=== PATIENT | male | born 1945 | race Caucasian/White ===

== ENCOUNTER → 2017-01-15 | Outpatient (CLI) | payer BC, MEDICARE ==
[~2017-01-15] MED LIST: FLOMAX0.4 MG PO; NEURONTIN100 MG PO; PREDNISONE20 M1 PO; SIMVASTATIN10 MG PO; VALTREX1 GM PO; VERAPAMIL HCL180 M1 PO
[2017-01-15 14:34] LABS: BUN 14 mg/dl (7-24); CARBON DIOXIDE 29 mmol/L (21-32); CHLORIDE 103 mmol/L (98-107); EST GLOM FILT AFRICAN AMERICAN > 60 ml/min; GLUCOSE 87 mg/dL (65-99); POTASSIUM 3.8 mmol/L (3.5-5.1); SODIUM 142 mmol/L (136-145)
== END | disposition home or self-care (01) ==
LOC: LAB 13:23
PROVIDERS: Urology
DX: Z12.5 Encounter for screening for malignant neoplasm of prostate (principal); N40.0 Benign prostatic hyperplasia without lower urinary tract symptoms

== ENCOUNTER → 2017-04-17 | Outpatient (CLI) | payer BC, MEDICARE ==
[2017-04-17 12:15] LABS: BASO % 0.5 % (0.0-1.0); EOS # 0.2 10*3/uL (0.0-0.4); EOS % 2.7 % (1.0-4.0); HEMATOCRIT 40.3 % (42.0-52.0); HEMOGLOBIN 13.5 g/dl (14.0-18.0); LYMPH # 2.1 10*3/uL (1.3-4.4); LYMPH % 25.2 % (27.0-41.0); MEAN CELL VOLUME 90.6 fl (80.0-94.0); MEAN CORPUSCULAR HGB 30.3 pg (27.0-31.0); MEAN CORPUSCULAR HGB CONC 33.5 g/dl (33.0-37.0); MEAN PLATELET VOLUME 9.5 fl (9.6-12.3); MONO # 0.5 10*3/uL (0.1-1.0); MONO % 6.6 % (3.0-9.0); NEUT # 5.3 10*3/uL (2.3-7.9); NEUT % 64.6 % (47.0-73.0); PLATELET COUNT AUTOMATED 181 10*3/uL (130-400); RED BLOOD COUNT 4.45 10*6/uL (4.50-5.90); RED CELL DISTRI WIDTH 13.1 % (0-14.5); WHITE BLOOD COUNT 8.2 10*3/uL (4.8-10.8)
[2017-04-17 12:43] LABS: ALBUMIN 3.5 gm/dl (3.1-4.5); ALKALINE PHOSPHATASE 63 U/L (45-117); BILIRUBIN, TOTAL 0.5 mg/dl (0.2-1.0); BUN 12 mg/dl (7-24); C-REACTIVE PROTEIN < 0.29 MG/DL (0-0.3); CARBON DIOXIDE 27 mmol/L (21-32); CHLORIDE 105 mmol/L (98-107); EST GLOM FILT AFRICAN AMERICAN > 60 ml/min; GLUCOSE 89 mg/dL (65-99); POTASSIUM 4.2 mmol/L (3.5-5.1); SGOT/AST 17 IU/L (3-35); SGPT/ALT 22 U/L (12-78); SODIUM 142 mmol/L (136-145); TOTAL PROTEIN 6.9 gm/dL (6.4-8.2)
== END | disposition home or self-care (01) ==
LOC: LAB 11:30
PROVIDERS: Internal Medicine
DX: L95.9 Vasculitis limited to the skin, unspecified (principal)

== ENCOUNTER → 2017-07-15 | Outpatient (CLI) | payer BC, MEDICARE ==
[2017-07-16 08:10] LABS: PROSTATE SPECIFIC AG FREE 2.96 ng/mL; PROSTATE SPECIFIC AG, SERUM 7.3 ng/mL (0.0-4.0)
== END | disposition home or self-care (01) ==
LOC: LAB 12:22
PROVIDERS: Urology
DX: R97.20 Elevated prostate specific antigen [PSA] (principal)

== ENCOUNTER 2017-08-01 12:53 | Emergency (ER) | payer BC, MEDICARE ==
[~2017-08-01] VITALS: Wt 83.9 kg
[2017-08-01] MEDS ORDERED: MULTIVITAMINS1 EAC5 PO (13:09)
[2017-08-01 13:39] LABS: BASO % 0.3 % (0.0-1.0); EOS # 0.1 10*3/uL (0.0-0.4); EOS % 1.4 % (1.0-4.0); HEMATOCRIT 37.9 % (42.0-52.0); HEMOGLOBIN 12.7 g/dl (14.0-18.0); LYMPH # 1.5 10*3/uL (1.3-4.4); LYMPH % 15.6 % (27.0-41.0); MEAN CORPUSCULAR HGB 30.2 pg (27.0-31.0); MEAN CORPUSCULAR HGB CONC 33.5 g/dl (33.0-37.0); MEAN PLATELET VOLUME 9.1 fl (9.6-12.3); MONO # 0.7 10*3/uL (0.1-1.0); MONO % 7.2 % (3.0-9.0); NEUT # 7.2 10*3/uL (2.3-7.9); NEUT % 75.2 % (47.0-73.0); PLATELET COUNT AUTOMATED 192 10*3/uL (130-400); RED BLOOD COUNT 4.21 10*6/uL (4.50-5.90); WHITE BLOOD COUNT 9.5 10*3/uL (4.8-10.8)
[2017-08-01] MEDS ORDERED: VALTREX1000 MG PO (13:46)
[2017-08-01] MEDS ORDERED: AUGMENTIN 875875 MG PO (13:46)
[2017-08-01 13:55] LABS: BILIRUBIN NEGATIVE (NEGATIVE); BLOOD NEGATIVE (NEGATIVE); CLARITY CLEAR (CLEAR); COLOR YELLOW (YELLOW); GLUCOSE NEGATIVE (NEGATIVE); KETONE NEGATIVE (NEGATIVE); LEUKO ESTERASE NEGATIVE (NEGATIVE); NITRITE NEGATIVE (NEGATIVE); SPECIFIC GRAVITY 1.015 (1.005-1.030); UROBILINOGEN 0.2 E.U./dl (0.2-1.0)
[2017-08-01 14:01] LABS: ALBUMIN 2.7 gm/dl (3.1-4.5); ALKALINE PHOSPHATASE 60 U/L (45-117); BUN 16 mg/dl (7-24); CHLORIDE 100 mmol/L (98-107); CREATININE 0.85 mg/dL (0.70-1.30); POTASSIUM 4.2 mmol/L (3.5-5.1); SGOT/AST 21 IU/L (3-35); SGPT/ALT 42 U/L (12-78); SODIUM 136 mmol/L (136-145)
[2017-08-01 14:24] LABS: BACTERIA TRACE; WBC 0-2 wbc/hpf (0-5)
== END 2017-08-01 14:41 | disposition home or self-care (01) ==
LOC: ED 12:53
PROVIDERS: Student in an Organized Health Care Education/Training Program
DX: B02.9 Zoster without complications (principal); J32.9 Chronic sinusitis, unspecified; Z79.899 Other long term (current) drug therapy; Z88.8 Allergy status to other drugs, medicaments and biological substances

== ENCOUNTER → 2017-12-31 | Outpatient (CLI) | payer BC, MEDICARE ==
[~2017-12-31] MED LIST changes: +AUGMENTIN 875875 MG PO; +MULTIVITAMINS1 EAC5 PO; +VALTREX1000 MG PO
[2017-12-31 12:27] LABS: THYROID STIM HORMONE (HS) 1.98 uIU/ml (0.358-4.75)
== END | disposition home or self-care (01) ==
LOC: LAB 10:48
PROVIDERS: Internal Medicine
DX: E78.00 Pure hypercholesterolemia, unspecified (principal); I10 Essential (primary) hypertension; N40.0 Benign prostatic hyperplasia without lower urinary tract symptoms

== ENCOUNTER → 2018-08-01 | Outpatient (CLI) | payer BC, MEDICARE ==
[~2018-08-01] MED LIST changes: +ASPIRIN CHEWABL81 MG PO; +CALAN SR120 MG PO; +LIPITOR20 MG PO
== END | disposition home or self-care (01) ==
LOC: LAB 15:55
DX: R97.20 Elevated prostate specific antigen [PSA] (principal)

== ENCOUNTER → 2018-08-10 | Day surgery (SDC) | payer BC, MEDICARE ==
[~2018-08-10] VITALS: Ht 182.8 cm; Wt 86.2 kg
--- NOTE | ~2018-08-10 | O ---
[place], [place] OPERATIVE NOTE NAME: [id number] UN[facility] #: [id number] ROOM: DOCTOR: REJI ANTONIO MD BIRTHDATE: [birth year] DOS: 08/10/2018 PREOPERATIVE DIAGNOSIS: Cataract, left eye. POSTOPERATIVE DIAGNOSIS: Cataract, left eye. OPERATION: Extracapsular cataract extraction by phacoemulsification with posterior chamber intraocular lens implantation, left eye. ANESTHESIA: Monitored standby. OPERATIVE FINDINGS AND PROCEDURE: 2% Xylocaine topical anesthetic gel was applied to the eye in the preop area. The patient was taken to the operating room and prepped and draped in the standard fashion for sterile intraocular surgery. A time out procedure was performed verifying correct patient, correct site and corrects lens with Sirena Antonio M.D. The operating microscope was swung into position and the lid speculum was inserted. Using a Lucie paracentesis blade, a paracentesis was made through clear cornea. Viscoelastic was used to fill the anterior chamber. Using a metal keratome a 2.4 mm self-sealing clear corneal cataract incision was made temporally at the limbus. Using a pre-bent 25 gauge cystotome needle, a standard continuous curvilinear capsulorrhexis was performed. The anterior capsule was removed with forceps. The lens nucleus was hydrodissected and phacoemulsified in the posterior chamber. Cortical material was removed with the irrigation aspiration hand piece and the posterior capsule was then polished with a curet under irrigation. The posterior chamber and capsular bag were filled with viscoelastic. A posterior chamber intraocular lens manufactured by: [employer], Model #[id number] and 13.5 diopters in strength were then inserted into the posterior chamber and within the capsular bag using the lens cartridge and injector system. Viscoelastic was removed using the irrigation aspiration handpiece. The anterior chamber was filled with balanced salt solution through the paracentesis. Both the paracentesis site and cataract incisions were hydrated with BSS and verified to be water-tight and self-sealing. Cefuroxime 1 mg/0.1 mL was injected into the anterior chamber through the paracentesis site. The incision checked to be water-tight using a Weck-Cora sponge. The integrity of the cataract wound and ocular tension were checked. Lid speculum and drapes were removed. The patient was transferred from the operating room to the recovery room in satisfactory condition. [place], [place] OPERATIVE NOTE NAME: MARIA ESTHER MONTERO UNIT #: [id number] ROOM: DOCTOR: REJI ANTONIO MD BIRTHDATE: [birth year] REJI ANTONIO MD CM:OPRECORD:OPERATIVE NOTE [id number] REJI ANTONIO MD 08/10/18 1149 interface
[2018-08-10 09:00] VITALS: BP 156/63
[2018-08-10 10:32] VITALS: BP 142/72
[2018-08-10 10:47] VITALS: BP 129/71
[2018-08-10 11:02] VITALS: BP 142/72
== END | disposition home or self-care (01) ==
LOC: SDC 08-08 11:00
DX: H25.812 Combined forms of age-related cataract, left eye (principal); I10 Essential (primary) hypertension; E78.5 Hyperlipidemia, unspecified; Z79.899 Other long term (current) drug therapy; Z98.890 Other specified postprocedural states; Z98.41 Cataract extraction status, right eye; Z88.8 Allergy status to other drugs, medicaments and biological substances

== ENCOUNTER → 2018-09-02 | Outpatient (CLI) | payer BC, MEDICARE ==
[2018-09-02 09:02] LABS: HEMATOCRIT 43.1 % (42.0-52.0); HEMOGLOBIN 14.2 g/dl (14.0-18.0); MEAN CELL VOLUME 93.7 fl (80.0-94.0); MEAN CORPUSCULAR HGB 30.9 pg (27.0-31.0); MEAN CORPUSCULAR HGB CONC 32.9 g/dl (33.0-37.0); MEAN PLATELET VOLUME 9.5 fl (9.6-12.3); RED BLOOD COUNT 4.6 10*6/uL (4.50-5.90); RED CELL DISTRI WIDTH 13.4 % (0-14.5); WHITE BLOOD COUNT 6.8 10*3/uL (4.8-10.8)
[2018-09-02 09:28] LABS: ALBUMIN 3.6 gm/dl (3.1-4.5); ALKALINE PHOSPHATASE 77 U/L (45-117); BUN 13 mg/dl (7-24); CHLORIDE 105 mmol/L (98-107); CHOLESTEROL 122 mg/dL (<200); CREATININE 0.94 mg/dL (0.70-1.30); HDL CHOLESTEROL 68 mg/dl (40-60); LDL CHOLESTEROL 46 mg/dL (9-159); SGOT/AST 16 IU/L (3-35); SGPT/ALT 21 U/L (12-78); SODIUM 140 mmol/L (136-145); TOTAL PROTEIN 7.2 gm/dL (6.4-8.2); TRIGLYCERIDES 41 mg/dl (<150); VLDL CHOLESTEROL 8 mg/dL (6-40)
== END | disposition home or self-care (01) ==
LOC: LAB 08:42
PROVIDERS: Internal Medicine
DX: I10 Essential (primary) hypertension (principal); E78.00 Pure hypercholesterolemia, unspecified; E55.9 Vitamin D deficiency, unspecified; Z79.899 Other long term (current) drug therapy

== ENCOUNTER → 2018-09-30 | Outpatient (CLI) | payer BC, MEDICARE | END | disposition home or self-care (01) | LOC: RAD 11:01 | DX: R07.81 Pleurodynia (principal); W19.XXXA Unspecified fall, initial encounter; Y93.89 Activity, other specified; Y92.89 Other specified places as the place of occurrence of the external cause; Y99.8 Other external cause status ==

== ENCOUNTER → 2019-03-10 | Outpatient (CLI) | payer BC, MEDICARE ==
[2019-03-10 10:40] LABS: HEMATOCRIT 43.4 % (42.0-52.0); HEMOGLOBIN 14.4 g/dl (14.0-18.0); MEAN CELL VOLUME 93.1 fl (80.0-94.0); MEAN CORPUSCULAR HGB 30.9 pg (27.0-31.0); MEAN CORPUSCULAR HGB CONC 33.2 g/dl (33.0-37.0); MEAN PLATELET VOLUME 9.7 fl (9.6-12.3); RED BLOOD COUNT 4.66 10*6/uL (4.50-5.90); RED CELL DISTRI WIDTH 13.4 % (0-14.5); WHITE BLOOD COUNT 6.4 10*3/uL (4.8-10.8)
[2019-03-10 11:13] LABS: ALBUMIN 3.4 gm/dl (3.1-4.5); ALKALINE PHOSPHATASE 64 U/L (45-117); BUN 15 mg/dl (7-24); CHLORIDE 107 mmol/L (98-107); CHOLESTEROL 133 mg/dL (<200); CREATININE 0.94 mg/dL (0.70-1.30); HDL CHOLESTEROL 65 mg/dl (40-60); LDL CHOLESTEROL 57 mg/dL (9-159); SGOT/AST 12 IU/L (3-35); SGPT/ALT 18 U/L (12-78); SODIUM 140 mmol/L (136-145); TRIGLYCERIDES 57 mg/dl (<150); VLDL CHOLESTEROL 11 mg/dL (6-40)
== END | disposition home or self-care (01) ==
LOC: LAB 10:13
PROVIDERS: Physician Assistant
DX: Z12.5 Encounter for screening for malignant neoplasm of prostate (principal); E78.00 Pure hypercholesterolemia, unspecified; H61.23 Impacted cerumen, bilateral

== ENCOUNTER → 2019-07-31 | Outpatient (CLI) | payer BC, MEDICARE | END | disposition home or self-care (01) | LOC: LAB 13:07 | DX: R97.20 Elevated prostate specific antigen [PSA] (principal) ==

== ENCOUNTER → 2019-08-31 | Outpatient (CLI) | payer BC, MEDICARE ==
[2019-08-31 12:19] LABS: HEMATOCRIT 45.1 % (42.0-52.0); HEMOGLOBIN 14.5 g/dl (14.0-18.0); MEAN CELL VOLUME 94.5 fl (80.0-94.0); MEAN CORPUSCULAR HGB 30.4 pg (27.0-31.0); MEAN CORPUSCULAR HGB CONC 32.2 g/dl (33.0-37.0); MEAN PLATELET VOLUME 9.7 fl (9.6-12.3); RED BLOOD COUNT 4.77 10*6/uL (4.50-5.90); RED CELL DISTRI WIDTH 13.2 % (0-14.5); WHITE BLOOD COUNT 7.2 10*3/uL (4.8-10.8)
[2019-08-31 12:39] LABS: ALBUMIN 3.3 gm/dl (3.1-4.5); ALKALINE PHOSPHATASE 77 U/L (45-117); BUN 14 mg/dl (7-24); CHLORIDE 107 mmol/L (98-107); CHOLESTEROL 122 mg/dL (<200); CREATININE 0.96 mg/dL (0.70-1.30); HDL CHOLESTEROL 64 mg/dl (40-60); LDL CHOLESTEROL 48 mg/dL (9-159); POTASSIUM 4.2 mmol/L (3.5-5.1); SGOT/AST 13 IU/L (3-35); SGPT/ALT 24 U/L (12-78); SODIUM 141 mmol/L (136-145); TOTAL PROTEIN 7.4 gm/dL (6.4-8.2); TRIGLYCERIDES 51 mg/dl (<150); VLDL CHOLESTEROL 10 mg/dL (6-40)
== END | disposition home or self-care (01) ==
LOC: LAB 11:33
PROVIDERS: Physician Assistant
DX: Z23 Encounter for immunization (principal); R60.0 Localized edema; E78.00 Pure hypercholesterolemia, unspecified; R53.82 Chronic fatigue, unspecified

== ENCOUNTER 2019-11-23 05:30 | Emergency (ER) | payer BC, MEDICARE ==
[~2019-11-23] VITALS: Ht 182.8 cm; Wt 90.7 kg
[~2019-11-23 05:30] MED LIST changes: -CALAN SR120 MG PO; +VERAPAMIL HCL180 MG PO
[2019-11-23 06:10] LABS: BASO % 0.5 % (0.0-1.0); EOS # 0.3 10*3/uL (0.0-0.4); EOS % 3.5 % (1.0-4.0); HEMATOCRIT 43.5 % (42.0-52.0); HEMOGLOBIN 14.4 g/dl (14.0-18.0); LYMPH # 2.3 10*3/uL (1.3-4.4); LYMPH % 27.1 % (27.0-41.0); MEAN CELL VOLUME 94.6 fl (80.0-94.0); MEAN CORPUSCULAR HGB 31.3 pg (27.0-31.0); MEAN CORPUSCULAR HGB CONC 33.1 g/dl (33.0-37.0); MEAN PLATELET VOLUME 9.8 fl (9.6-12.3); MONO # 0.7 10*3/uL (0.1-1.0); MONO % 8.2 % (3.0-9.0); NEUT % 60.3 % (47.0-73.0); PLATELET COUNT AUTOMATED 192 10*3/uL (130-400); RED CELL DISTRI WIDTH 13.1 % (0-14.5); WHITE BLOOD COUNT 8.3 10*3/uL (4.8-10.8)
[2019-11-23 06:22] LABS: ALBUMIN 3.3 gm/dl (3.1-4.5); ALKALINE PHOSPHATASE 107 U/L (45-117); BUN 21 mg/dl (7-24); CHLORIDE 108 mmol/L (98-107); CREATININE 1.01 mg/dL (0.70-1.30); LIPASE 111 U/L (73-393); POTASSIUM 3.9 mmol/L (3.5-5.1); SGOT/AST 14 IU/L (3-35); SGPT/ALT 23 U/L (12-78); SODIUM 139 mmol/L (136-145); TOTAL PROTEIN 7.3 gm/dL (6.4-8.2)
[2019-11-23 07:55] LABS: BILIRUBIN NEGATIVE (NEGATIVE); CLARITY CLEAR (CLEAR); COLOR YELLOW (YELLOW); GLUCOSE NEGATIVE (NEGATIVE)
[2019-11-23 07:57] LABS: KETONE NEGATIVE (NEGATIVE)
[2019-11-23 07:58] LABS: BLOOD 3+ (NEGATIVE); PH 7.5 (5.0-9.0); UROBILINOGEN 0.2 E.U./dl (0.2-1.0)
[2019-11-23 07:59] LABS: LEUKO ESTERASE NEGATIVE (NEGATIVE); NITRITE NEGATIVE (NEGATIVE); WBC 0-2 wbc/hpf (0-5)
== END 2019-11-23 09:45 | disposition home or self-care (01) ==
LOC: ED 05:30
PROVIDERS: Emergency Medicine
DX: K80.50 Calculus of bile duct without cholangitis or cholecystitis without obstruction (principal); N28.1 Cyst of kidney, acquired; I10 Essential (primary) hypertension; Z88.8 Allergy status to other drugs, medicaments and biological substances; Z79.899 Other long term (current) drug therapy; Z79.82 Long term (current) use of aspirin

== ENCOUNTER → 2019-11-28 | Outpatient (CLI) | payer BC, MEDICARE ==
[~2019-11-28] MED LIST changes: +CO Q10100 MG PO
== END | disposition home or self-care (01) ==
LOC: US 08:26
DX: K82.8 Other specified diseases of gallbladder (principal)

== ENCOUNTER 2019-11-29 13:25 | Inpatient (IN) | payer BC, MEDICARE ==
[~2019-11-29] VITALS: Ht 180.3 cm; Wt 89.4 kg
[~2019-11-29 13:25] MED LIST changes: -CO Q10100 MG PO
[2019-11-29 13:32] VITALS: BP 154/76
[2019-11-29 14:21] LABS: BASO # 0.1 10*3/uL (0.0-0.1); BASO % 0.2 % (0.0-1.0); HEMATOCRIT 39.2 % (42.0-52.0); HEMOGLOBIN 13.6 g/dl (14.0-18.0); LYMPH # 0.6 10*3/uL (1.3-4.4); LYMPH % 2.8 % (27.0-41.0); MEAN CELL VOLUME 89.5 fl (80.0-94.0); MEAN CORPUSCULAR HGB 31.1 pg (27.0-31.0); MEAN CORPUSCULAR HGB CONC 34.7 g/dl (33.0-37.0); MEAN PLATELET VOLUME 10.2 fl (9.6-12.3); MONO # 1.3 10*3/uL (0.1-1.0); MONO % 6.5 % (3.0-9.0); NEUT % 89.9 % (47.0-73.0); PLATELET COUNT AUTOMATED 209 10*3/uL (130-400); RED BLOOD COUNT 4.38 10*6/uL (4.50-5.90)
[2019-11-29 14:34] LABS: ACT PARTIAL THROMBO TIME 34.7 SECONDS (20.0-32.1); INTERNATIONAL NORM RATIO 1.1 (2.0-3.5)
[2019-11-29 14:36] LABS: ALBUMIN 2.2 gm/dl (3.1-4.5); ALKALINE PHOSPHATASE 108 U/L (45-117); BUN 31 mg/dl (7-24); CHLORIDE 98 mmol/L (98-107); CREATININE 1.33 mg/dL (0.70-1.30); LIPASE 79 U/L (73-393); POTASSIUM 3.7 mmol/L (3.5-5.1); SGOT/AST 62 IU/L (3-35); SGPT/ALT 45 U/L (12-78); SODIUM 131 mmol/L (136-145); TOTAL PROTEIN 7.6 gm/dL (6.4-8.2)
[2019-11-29 15:00] VITALS: BP 136/78
[2019-11-29 16:00] VITALS: BP 148/80
--- NOTE | 2019-11-29 16:45 | NUR ---
A 74, admitted to , under the services of SUZAN Fontana DO with a diagnosis of CHOLECYSTITIS,SEVERE SEPSIS,PNEUMONITIS. Chief complaint is ABDOMINAL PAIN. Patient arrived via bed from ER. Monitor applied. Initial assessment completed. Vital signs taken and recorded. SUZAN FONTANA DO notified of admission to the unit. Orders received. See assessment for past medical history, medications and allergies. Patient and/or family oriented to unit. [address] visitation policy reviewed. Clothing/patient valuable form completed. ZIYAD JONES R
[2019-11-29 17:00] VITALS: BP 153/78
--- NOTE | 2019-11-29 17:30 | NUR ---
CALLED DR. NOVOA MADE AWARE CONSULT. SURGERY IN AM.
[2019-11-29] MEDS ORDERED: CO Q10100 MG PO (17:42)
--- NOTE | 2019-11-29 18:00 | NUR ---
CALLED DR. NOVOA REGARDING PT NOT MOVED BOWELS SINCE LAST . FLEETS ORDERED.
[2019-11-29 18:18] LABS: BILIRUBIN NEGATIVE (NEGATIVE); BLOOD NEGATIVE (NEGATIVE); CLARITY CLEAR (CLEAR); COLOR YELLOW (YELLOW); GLUCOSE NEGATIVE (NEGATIVE); KETONE TRACE (NEGATIVE)
[2019-11-29 18:19] LABS: LEUKO ESTERASE NEGATIVE (NEGATIVE); NITRITE NEGATIVE (NEGATIVE); UROBILINOGEN 0.2 E.U./dl (0.2-1.0)
[2019-11-29 18:28] LABS: BACTERIA 2+; RBC 0-2 rbc/hpf (0-2)
--- NOTE | 2019-11-29 18:50 | NUR ---
PT REFUSED TO DO FLEETS ENEMA AT THIS TIME. STATES HE HASN'T ATE MUCH AND DON'T WANT TO DO ENEMA.
[2019-11-29 20:00] VITALS: BP 119/62
[2019-11-30] VITALS: BP 129/63
--- NOTE | 2019-11-30 | NUR ---
PATIENT RESTING QUIETLY. IV FLUIDS INFUSING PER ORDER. ASSESED PAIN LEVEL. PATIENT DESCRIBED PAIN "THE USUAL" AND DENIED ANTY NEED FOR PAIN MED AT THIS TIME
--- NOTE | 2019-11-30 00:55 | NUR ---
24 HR chart check completed.
--- NOTE | 2019-11-30 02:10 | NUR ---
PATIENT MEDICATED SLOWLY WITH 2 MG IV MORPHINE PER PRN ORDER FOR C/O ABDOMINAL PAIN. RATED PAIN A 10/10 WITH MOVT. SEE EMAR. REINFORCED USE OF CALL LIGHT.
[2019-11-30 06:13] LABS: BASO % 0.2 % (0.0-1.0); EOS % 0.2 % (1.0-4.0); HEMATOCRIT 37.6 % (42.0-52.0); HEMOGLOBIN 12.7 g/dl (14.0-18.0); LYMPH # 1.1 10*3/uL (1.3-4.4); LYMPH % 5.4 % (27.0-41.0); MEAN CELL VOLUME 90.6 fl (80.0-94.0); MEAN CORPUSCULAR HGB 30.6 pg (27.0-31.0); MEAN CORPUSCULAR HGB CONC 33.8 g/dl (33.0-37.0); MEAN PLATELET VOLUME 10.1 fl (9.6-12.3); MONO # 1.3 10*3/uL (0.1-1.0); MONO % 6.9 % (3.0-9.0); NEUT # 16.7 10*3/uL (2.3-7.9); NEUT % 86.5 % (47.0-73.0); PLATELET COUNT AUTOMATED 193 10*3/uL (130-400); RED BLOOD COUNT 4.15 10*6/uL (4.50-5.90); RED CELL DISTRI WIDTH 13.2 % (0-14.5); WHITE BLOOD COUNT 19.3 10*3/uL (4.8-10.8)
[2019-11-30 06:36] LABS: ALBUMIN 1.9 gm/dl (3.1-4.5); CHLORIDE 103 mmol/L (98-107); CREATININE 1.01 mg/dL (0.70-1.30); POTASSIUM 3.5 mmol/L (3.5-5.1); SGOT/AST 55 IU/L (3-35); SGPT/ALT 45 U/L (12-78); SODIUM 136 mmol/L (136-145); TOTAL PROTEIN 6.7 gm/dL (6.4-8.2); TRIGLYCERIDES 78 mg/dl (<150); VLDL CHOLESTEROL 16 mg/dL (6-40)
--- NOTE | 2019-11-30 06:50 | NUR ---
PATIENT BEING TRANSPORTED TO OR.
[2019-11-30 07:06] VITALS: BP 150/99
[2019-11-30 07:35] LABS: BUN 21 mg/dl (7-24); CHOLESTEROL 50 mg/dL (<200); HDL CHOLESTEROL 12 mg/dl (40-60); LDL CHOLESTEROL 22 mg/dL (9-159)
[2019-11-30 07:36] LABS: FREE T4 0.96 ng/dl (0.76-1.46)
[2019-11-30 07:37] LABS: ALKALINE PHOSPHATASE 103 U/L (45-117)
--- NOTE | 2019-11-30 07:59 | NUR ---
PATIENT IN SURGERY.
--- NOTE | 2019-11-30 09:00 | NUR ---
case management unable to visit with patient due to patient out of room in surgery, will see later today
[2019-11-30 09:12] LABS: VITAMIN D, 25-HYDROXY 41.1 ng/mL (30-100)
[2019-11-30 09:34] LABS: HEMATOCRIT 30.8 % (42.0-52.0); HEMOGLOBIN 10.2 g/dl (14.0-18.0)
[2019-11-30 09:50] LABS: ALBUMIN 1.5 gm/dl (3.1-4.5); ALKALINE PHOSPHATASE 85 U/L (45-117); BUN 22 mg/dl (7-24); CHLORIDE 107 mmol/L (98-107); CREATININE 0.96 mg/dL (0.70-1.30); POTASSIUM 3.9 mmol/L (3.5-5.1); SGOT/AST 165 IU/L (3-35); SGPT/ALT 78 U/L (12-78); SODIUM 137 mmol/L (136-145); TOTAL PROTEIN 5.3 gm/dL (6.4-8.2)
--- NOTE | 2019-11-30 10:10 | NUR ---
ARRIVED FROM OR VIA BED. SEDATED. # 8 ENDOTUBE AT 24 LIP REMAINS IN. VENT SETTINGS ARE TV 550, CMV 12, FIO2 50%, AND PEEP 5. OGT INTACT AND PLACED TO LOW INTERMITTENT SUCTION. ABDOMEN SOFT AND NON-TENDER WITH J/P DRAIN DRAINING BLOODY DRAINAGE. TOLEDO DRAINING DARK EFREN URINE.
[2019-11-30 11:02] LABS: ARTERIAL BLOOD GAS PH 7.249 (7.35-7.45)
--- NOTE | 2019-11-30 11:10 | NUR ---
DR. VALDEZ NOTIFIED OF ABG RESULTS AND WANTS ABG'S IN 2 HRS AND TO CALL
--- NOTE | 2019-11-30 11:32 | NUR ---
case management unable to visit with patient due to vent, case management will follow
[2019-11-30 12:00] VITALS: BP 125/52
[2019-11-30 12:09] LABS: BUN 24 mg/dl (7-24); CHLORIDE 106 mmol/L (98-107); CREATININE 1.07 mg/dL (0.70-1.30); POTASSIUM 4.3 mmol/L (3.5-5.1); SODIUM 138 mmol/L (136-145)
[2019-11-30 12:10] LABS: HEMATOCRIT 32.6 % (42.0-52.0); HEMOGLOBIN 10.8 g/dl (14.0-18.0); MEAN CELL VOLUME 93.1 fl (80.0-94.0); MEAN CORPUSCULAR HGB 30.9 pg (27.0-31.0); MEAN CORPUSCULAR HGB CONC 33.1 g/dl (33.0-37.0); MEAN PLATELET VOLUME 10.1 fl (9.6-12.3); PLATELET COUNT AUTOMATED 168 10*3/uL (130-400); RED CELL DISTRI WIDTH 13.5 % (0-14.5); WHITE BLOOD COUNT 17.4 10*3/uL (4.8-10.8)
--- NOTE | 2019-11-30 12:22 | NUR ---
DR. SCHULTE CALLED AND NOTIFIED OF CONSULT. WILL DO ERCP TOMORROW AROUND 1PM. SURGERY TEAM NOTIFIED
[2019-11-30 12:31] LABS: BASOPHILS 1 % (0-1); TOTAL CELLS COUNTED 100 #CELLS
[2019-11-30 12:32] LABS: BURR CELLS FEW; PLATELET SUFFICIENCY NORMAL (NORMAL); TOXIC GRANULATION SLIGHT; VACUOLATION OF NEUTROPHILS SLIGHT
[2019-11-30 13:25] LABS: ABG BASE EXCESS -4.5 mmol/L (-2.0-2.0); ARTERIAL BLOOD GAS PH 7.365 (7.35-7.45)
--- NOTE | 2019-11-30 13:53 | NUR ---
FIO2 DECREASED TO 40%.
[2019-11-30 16:00] VITALS: BP 120/53
[2019-11-30 16:04] LABS: ABG BASE EXCESS -4.2 mmol/L (-2.0-2.0); ARTERIAL BLOOD GAS PH 7.388 (7.35-7.45)
--- NOTE | 2019-11-30 16:28 | NUR ---
DR. VALDEZ NOTIFIED OF PT'S BLOOD GAS. FIO2 TO BE LOWERED TO 30% AND ANOTHER ABG IN THE MORNING
--- NOTE | 2019-11-30 19:28 | NUR ---
24 HR chart check completed.
[2019-11-30 20:00] VITALS: BP 117/54; BP 118/52
--- NOTE | 2019-11-30 20:24 | NUR ---
ATERIAL LINE ZERO COMPLETE. PATENT.
--- NOTE | 2019-11-30 20:24 | NUR ---
PT RESTING QUIETLY ON BED WITH EASY RESPIRATIONS AT THIS TIME. VENTILATOR SETTINGS PER ORDERS. OG TUBE IN PLACE AT INTERMITTENT LOW SUCTION. MINIMAL DARK GREEN OUTPUT NOTED. MINIMAL CLEAR SECRETIONS SUCTIONED FROM ET TUBE VIA CLOSED SYSTEM. TOLEDO IN PLACE CLOUDY YELLOW URINE NOTED. BARBARA DRAIN IN PLACE WITH SEROUS DRAINAGE. DRESSINGS INTACT TO SURGICAL WOUNDS. AREA AT INCISION IS FIRM AND RED WITH SOME DISTENTION. Barbara DRAIN WITH 20 ML OUTPUT NOTED. CONTINUE TO MONITOR.
[2019-11-30 22:00] VITALS: BP 122/57
--- NOTE | 2019-11-30 22:44 | NUR ---
PT RESTING ON BED EASY RESPIRATIONS. NO DISTRESS NOTED. SMALL SKIN TEAR NOTED TO TOP OF LEFT HAND DURING BED BATH. PT HAD SMALL SCAB TO THE AREA UPON ADMISSION. ACUTE BLEEDING CONTROLLED. MD AWARE AND ORDERED RECEIVED. V INCIDNET AND PICTURES COMPLETED. RN TO CONTINUE TO MONITOR.
[2019-12-01] VITALS (11 sets, daily range): BP systolic 113–165; BP diastolic 52–68
--- NOTE | 2019-12-01 01:00 | NUR ---
PATIENT RESTING ON VENT, NO SIGNS OF DISTRESS.
[2019-12-01 05:44] LABS: ALBUMIN 1.5 gm/dl (3.1-4.5); ALKALINE PHOSPHATASE 104 U/L (45-117); BUN 32 mg/dl (7-24); CHLORIDE 108 mmol/L (98-107); CREATININE 1.13 mg/dL (0.70-1.30); PHOSPHOROUS 3.3 mg/dL (2.5-4.9); POTASSIUM 3.8 mmol/L (3.5-5.1); SGOT/AST 273 IU/L (3-35); SGPT/ALT 154 U/L (12-78); SODIUM 139 mmol/L (136-145); TOTAL PROTEIN 5.9 gm/dL (6.4-8.2)
[2019-12-01 06:00] LABS: BASO % 0.2 % (0.0-1.0); EOS % 0.1 % (1.0-4.0); HEMATOCRIT 29.7 % (42.0-52.0); LYMPH # 1.1 10*3/uL (1.3-4.4); LYMPH % 5.7 % (27.0-41.0); MEAN CELL VOLUME 91.1 fl (80.0-94.0); MEAN CORPUSCULAR HGB 30.7 pg (27.0-31.0); MEAN CORPUSCULAR HGB CONC 33.7 g/dl (33.0-37.0); MEAN PLATELET VOLUME 10.1 fl (9.6-12.3); MONO # 1.2 10*3/uL (0.1-1.0); MONO % 6.3 % (3.0-9.0); NEUT # 16.9 10*3/uL (2.3-7.9); NEUT % 86.5 % (47.0-73.0); PLATELET COUNT AUTOMATED 197 10*3/uL (130-400); RED BLOOD COUNT 3.26 10*6/uL (4.50-5.90); RED CELL DISTRI WIDTH 13.8 % (0-14.5); WHITE BLOOD COUNT 19.5 10*3/uL (4.8-10.8)
[2019-12-01 06:13] LABS: ARTERIAL BLOOD GAS PH 7.312 (7.35-7.45)
[2019-12-01 06:15] LABS: ABG BASE EXCESS -13.2 mmol/L (-2.0-2.0)
[2019-12-01 06:24] LABS: ACT PARTIAL THROMBO TIME 27.1 SECONDS (20.0-32.1)
--- NOTE | 2019-12-01 06:34 | NUR ---
EUGENESAHILMARIA ESTHER [id number] Please refer to the physician's history and physical for past medical history, comorbid conditions, and allergies. Diagnosis: CHOLECYSTITIS,SEVERE SEPSIS,PNEUMONITIS Jamin Score: 13,MODERATE RISK WOUND DESCRIPTIONS: Wound Number: 1 Location of the wound: left hand Type of wound: skinm tear Thickness: Partial Size: 0.6cm x 0.8cm x 0.1cm Tunneling: none Undermining: none Sinus Tract: none Presence of Exudate: Serosanguineous Amount: Light Color: Red Odor: None Periwound Skin Appearance: Normal Wound edges: approximated Pain (associated with wound): none at time of assessment How does patient state this happened? pt unable to state how this happened Surface the patient is resting on: Isoflex SKIN PREVENTION RECOMMENDATION: 1. Pressure redistribution support surface as appropriate 2. Elevate heels 3. Remove boots/TEDS every shift and reapply 4. Head of bed 30 degrees as tolerated 5. Assess nutrition and hydration 6. Manage moisture 7. Avoid the use of containment devices while in bed 8. Use absorptive products on surfaces limit layers of linens on bed 9. Turn and reposition every 1-2 hours in bed and every 1 hour in chair as tolerated 10. Weight shifts every 15 minutes while up in chair 11. Offloading with pillows or device to keep heels elevated off bed 12. Monitor skin at least every shift 13. Inspect under medical devices twice a day WOUND TREATMENT RECOMMENDATIONS: Clarify skin tear guidelines: Cleanse left hand with nss and apply sureprep around the wound hydrogel to wound bed and cover with optifoam gentle changed every 2 days and prn for soiling.
--- NOTE | 2019-12-01 06:34 | NUR ---
UPDATE GIVEN TO DR. NOVOA. NO NEW ORDERS AT THIS TIME.
--- NOTE | 2019-12-01 06:47 | NUR ---
NEW DRESSING APPLIED TO LT HAND.
--- NOTE | 2019-12-01 07:47 | NUR ---
Dr. Madrigal notified of wound care recommendations
--- NOTE | 2019-12-01 08:00 | NUR ---
RESTING IN BED, SEDATED ON DIPRIVAN GTT. TURNED AND REPOSITIONED ONTO RIGHT SIDE. DOES OPEN EYES WITH ANY CARE GIVEN. ABDOMEN SOFT WITH FAINT BOWEL SOUNDS HEARD. ABDOMINAL DRESSING TO RIGHT SIDE OF ABDOMEN IS INTACT WITH SMALL AMOUNT BLOOD UNDER DRESSING. J/P DRAIN INTACT AND DRAINING BLOODY DRAINAGE. 2 PUNCTURE SITES ARE COVERED WITH IWONA UNDERNEATH. TOLEDO DRAINING CLOUDY EFREN URINE. SCD'S AND DARLENE HOSE INTACT TO BILATERAL LOWER EXTREMITIES. ART LINE INTACT TO LEFT RADIAL WITH GOOD WAFEFORM NOTED.
[2019-12-01 09:59] LABS: ABG BASE EXCESS -0.2 mmol/L (-2.0-2.0); ARTERIAL BLOOD GAS PH 7.438 (7.35-7.45)
--- NOTE | 2019-12-01 10:40 | NUR ---
DR. VALDEZ NOTIFIED OF ABG RESULTS. NO FURTHER ORDERS RECEIVED
--- NOTE | 2019-12-01 15:20 | NUR ---
Received into iccu #1 via OR, Patient remains sedated, diprivan gtt off. Placed back on vent. Abdomen distended with very faint bowel sounds heard. OGT remains in place and clamped off. J/p drain emptied for 60cc bloody drainage. Mendoza draining dark tony urine. Bp 147/62
--- NOTE | 2019-12-01 16:00 | NUR ---
PLACED ON C-PAP 5; PRESSURE SUPPORT 10
--- NOTE | 2019-12-01 16:04 | NUR ---
PATIENT PLACED ON CPAP 5/PSV 10 WEAN FIO2 25%. PATIENT APPEARS TO BE TOLERATING WELL. SPONTANEOUS RESPIRATORY RATE 14, TIDAL VOLUME 960, SPO2 95%, BP 152/59.
--- NOTE | 2019-12-01 16:11 | NUR ---
FIO2 INCREASED TO 35% FOR AN SPO2 OF 90% DURING WEAN.
[2019-12-01 18:19] LABS: ABG BASE EXCESS 1.6 mmol/L (-2.0-2.0); ARTERIAL BLOOD GAS PH 7.477 (7.35-7.45)
--- NOTE | 2019-12-01 18:30 | NUR ---
Extubated. Placed on 3l nasal cannula. Pulse ox 97%.
--- NOTE | 2019-12-01 19:58 | NUR ---
UNDERPADS CHANGED FOR PT COMFORT. PT DENIES NEED FOR PAIN MEDICATION AT THIS TIME. VSS.
--- NOTE | 2019-12-01 22:32 | NUR ---
ART LINE DRESSING LOOSE. REDRESSED. PT CONTINUES TO DENY OFFER FOR PAIN MEDICATION AT THIS TIME.
[2019-12-02] VITALS: BP 132/58
[2019-12-02 04:00] VITALS: BP 136/81
--- NOTE | 2019-12-02 07:25 | NUR ---
24 HR chart check completed.
[2019-12-02 07:36] LABS: HEMATOCRIT 27.3 % (42.0-52.0); HEMOGLOBIN 9.1 g/dl (14.0-18.0); MEAN CELL VOLUME 91.6 fl (80.0-94.0); MEAN CORPUSCULAR HGB 30.5 pg (27.0-31.0); MEAN CORPUSCULAR HGB CONC 33.3 g/dl (33.0-37.0); MEAN PLATELET VOLUME 9.4 fl (9.6-12.3); RED BLOOD COUNT 2.98 10*6/uL (4.50-5.90); WHITE BLOOD COUNT 14.9 10*3/uL (4.8-10.8)
[2019-12-02 07:37] LABS: PLATELET COUNT AUTOMATED 265 10*3/uL (130-400)
[2019-12-02 07:43] LABS: ALBUMIN 1.5 gm/dl (3.1-4.5); ALKALINE PHOSPHATASE 102 U/L (45-117); BUN 28 mg/dl (7-24); CHLORIDE 110 mmol/L (98-107); CREATININE 0.75 mg/dL (0.70-1.30); POTASSIUM 3.5 mmol/L (3.5-5.1); SGOT/AST 123 IU/L (3-35); SGPT/ALT 120 U/L (12-78); SODIUM 145 mmol/L (136-145); TOTAL PROTEIN 5.8 gm/dL (6.4-8.2)
[2019-12-02 08:00] VITALS: BP 124/72
[2019-12-02 08:02] LABS: TOTAL CELLS COUNTED 100 #CELLS; TOXIC GRANULATION SLIGHT
[2019-12-02 08:03] LABS: PLATELET SUFFICIENCY NORMAL (NORMAL)
[2019-12-02 08:04] LABS: PLASMA CELL 1 % (0-0)
--- NOTE | 2019-12-02 08:19 | NUR ---
PT RESTING COMFORTABLY ON BED WITH EASY RESPIRATIONS. OXYGEN AT 3L NC. OLI DRAIN NOTED WITH 10ML DARK RED DRAINAGE. TOLEDO CATHETER PATENT WITH CLOUDY YELLOW URINE. PT DENIES PAIN AT THIS TIME. LEFT RADIAL ARTERIAL LINE PATENT WITH GOOD WAVE FORMS. MRSA SWAB COLLECTED AND SENT. ABDOMEN DISTENDED BUT SOFT. HYPOACTIVE BOWEL SOUNDS. RN TO CONTINUE TO [facility]. DR OSPINA IN ROOM FOR EVALUATOIN.
--- NOTE | 2019-12-02 08:45 | NUR ---
ART LINE DISCONTINUED PER MD ORDERS. DRESSING APPLIED. NO COMPLICATIONS NOTED.
--- NOTE | 2019-12-02 09:10 | NUR ---
TYLENOL 650 MG GIVEN ORALLY FOR MILD PAIN. RN TO ASSIST TRANFER TO BEDSIDE CHAIR.
--- NOTE | 2019-12-02 09:30 | NUR ---
RN SPOKE WTIH DR SCHULTE. REPORTED LAB WORK AND RECEIVED UPDATED DIET ORDER PAIN MEDICATION EFFECTIVE
--- NOTE | 2019-12-02 10:00 | NUR ---
PT UP TO BEDSIDE CHAIR WITH RN ASSIST. PT WEAK ON FEET BUT ABLE TO BEAR FULL WEIGHT AND TRANSFER WTIH ASSISTANCE.
[2019-12-02 12:00] VITALS: BP 134/68
--- NOTE | 2019-12-02 12:05 | NUR ---
PT SITTING IN BEDSIDE CHAIR WITH EASY RESPIRATIONS ON ROOM AIR. NO DISTRESS. DENIES ANY PAIN AT THIS TIME. CONTINUE TO MONITOR.
--- NOTE | 2019-12-02 14:19 | NUR ---
PT RESTING COMFORTABLY IN BEDSIDE CHAIR. FAMILY AT BEDSIDE. INCENTIVE SPIROMETER AT BEDSIDE WTIH PT PERFORMING PROPERLY WITH RN PRESENT. RN TO CONTINUE TO MONITOR.
--- NOTE | 2019-12-02 14:39 | NUR ---
PT REQUESTING TO GO BACK TO BED. PT ASSISTED TO BED WITH ABILITY TO BEAR WEIGHT. WEAKNESS NOTED. PT DENIES ANY INCREASE IN PAIN UPON TRANSFER. VITALS STABLE. RN TO CONTINUE TO MONITOR.
--- NOTE | 2019-12-02 15:11 | NUR ---
PT REPORT GIVEN TO OLVIN BAILEY. PT STABLE AND RESTING COMFORTABLY.
--- NOTE | 2019-12-02 15:27 | NUR ---
DR MAE VISITED EARLIER. HE REMOVED DRESSING TO INCISION, LEFT OPEN TO AIR. NEW SPLIT 2X2 AND TEGADERM WAS APPLIED TO OLI INSERTION SITE.
--- NOTE | 2019-12-02 15:51 | NUR ---
PT INSTRUCTED ON USE OF IS. PT DEMONSTRATED PROPER TECHNIQUE. PT ACHIEVE [phone] CC X 10. PT INSTRUCTED TO USE Q 1 HR W/A.
--- NOTE | 2019-12-02 15:59 | NUR ---
ON ASSESSMENT PATIENT RESTING EASILY WITH HEAD OF BED ELEVATED. NASAL O2 ON AT 1L/MIN ON ROOM AIR HE WAS HAVING PERIODS OF DESATURATION. ENCOURAGED INCENTIVE SPIROMETRY. ABDOMEN IS DISTENDED WITH A FEW HYPOACTIVE TINKLES OF PERISTALSIS. PT REPORTS PASSING GAS. TWO TROCAR SITES HAVE STERISTRIPS WITH NO DRAINAGE. THE RUQ INCISION WELL APPROXIMATED WITH 13 IWONA INTACT. DRESSING INTACT TO OLI DRAIN INSERTION SITE. THE OLI BULB SUCTION IS ACTIVATED. SMALL AMOUNT OF DRK RED DRAINAGE SEEN IN BULB. HE HAS NOT VOIDED SINCE TOLEDO REMOVED. SEE ALL APPROPRIATE INTERVENTIONS.
[2019-12-02 16:00] VITALS: BP 139/58
--- NOTE | 2019-12-02 16:36 | NUR ---
DR NOVOA CALLED IN TO CHECK ON PATIENT AND UPDATED.
--- NOTE | 2019-12-02 17:50 | NUR ---
TRANSFERRED VIA BED IN STABLE CONDITION.
--- NOTE | 2019-12-02 19:29 | NUR ---
REPORT TO MK.
[2019-12-02 20:00] VITALS: BP 147/56
--- NOTE | 2019-12-02 20:42 | NUR ---
PT HAS VOIDED 50 CC AT THIS TIME INTO URINAL FOR THE FIRST TIME POST TOLEDO CATHETER REMOVAL. PT DENIES PAIN TO ABDOMEN. OLI DRAIN IS IN TACT, DRAINING DARK RED FLUID. IWONA TO ABDOMEN ARE IN TACT AND MILKA PER ORDERS. STERI STRIPS TO INCISIONS ARE C/D/I. HYPOACTIVE BOWEL SOUNDSX4 QUADS. PT STATES HE IS PASSING GAS. NO COMPLAINTS ARE VOICED. SCDS AND TEDS IN PLACE TO BILATERAL LOWER EXTREMITIES. RESPIRATIONS EASY AND UNLABORED. NO SOB NOTED. WILL CONTINUE TO MONITOR. CALL LIGHT IN REACH.
[2019-12-03] VITALS: BP 154/56
--- NOTE | 2019-12-03 | NUR ---
PT SLEEPING IN BED. RESPIRATIONS UNLABORED ON 1L NC. NO S/S OF DISTRESS. SCDS/TEDS IN PLACE. WILL CONTINUE TO MONITOR. CALL LIGHT IN REACH.
--- NOTE | 2019-12-03 02:38 | NUR ---
Shift chart check completed.
--- NOTE | 2019-12-03 06:00 | NUR ---
OLI DRAIN EMPTIED, ABOUT 18 CC OF DARK RED DRAINAGE EMPTIED AT THIS TIME. PT DENIES PAIN/SOB/DISCOMFORT. RESPIRATIONS UNLABORED. ALL NEEDS MET. CALL LIGHT IN REACH.
[2019-12-03 06:28] LABS: HEMATOCRIT 28.5 % (42.0-52.0); HEMOGLOBIN 9.3 g/dl (14.0-18.0); MEAN CELL VOLUME 92.5 fl (80.0-94.0); MEAN CORPUSCULAR HGB 30.2 pg (27.0-31.0); MEAN CORPUSCULAR HGB CONC 32.6 g/dl (33.0-37.0); MEAN PLATELET VOLUME 9.3 fl (9.6-12.3); NUCLEATED RED BLOOD CELL 0.2 % (0.0-0.0); PLATELET COUNT AUTOMATED 327 10*3/uL (130-400); RED BLOOD COUNT 3.08 10*6/uL (4.50-5.90); RED CELL DISTRI WIDTH 14.3 % (0-14.5); WHITE BLOOD COUNT 12.8 10*3/uL (4.8-10.8)
[2019-12-03 06:32] LABS: BUN 22 mg/dl (7-24); CHLORIDE 110 mmol/L (98-107); CREATININE 0.74 mg/dL (0.70-1.30); POTASSIUM 3.4 mmol/L (3.5-5.1); SODIUM 141 mmol/L (136-145)
[2019-12-03 07:10] LABS: OVALOCYTES FEW; PLASMA CELL 1 % (0-0); PLATELET SUFFICIENCY NORMAL (NORMAL); POLYCHROMASIA SLIGHT; TOTAL CELLS COUNTED 100 #CELLS; TOXIC GRANULATION SLIGHT
[2019-12-03 08:00] VITALS: BP 130/84
--- NOTE | 2019-12-03 10:54 | NUR ---
WOUND CARE COMPLETED TOLERATED WELL
--- NOTE | 2019-12-03 11:00 | NUR ---
PHYSICAL THERAPY PT EVAL COMPLETED TODAY ON LEVEL 4: FULL EVAL TO FOLLOW. RECOMMEND PT WHILE HERE TO ADDRESS DECREASED STRENGTH AND FUNCTIONAL MOBILITY. PT EVAL IS MODERATE COMPLEXITY: [id number]. D/C REC: WOULD ADVISE SNF DUE TO LIVING ALONE AND RECENT SURGERY HOWEVER IF HE CONTINUES TO DO WELL HERE MAY BE ABLE TO RETURN TO HOME WITH HOME HEALTH SERVICES. THANK YOU FOR REFERRAL ARIELA MARQUEZ PT
[2019-12-03 12:00] VITALS: BP 143/59
--- NOTE | 2019-12-03 12:59 | NUR ---
DENIES DISCOMFORT. NO NEEDS STATED
--- NOTE | 2019-12-03 14:46 | NUR ---
PER CAROL OLIVO TO START REGULAR DIET. SEE ORDERS.
[2019-12-03 16:00] VITALS: BP 132/54
--- NOTE | 2019-12-03 18:05 | NUR ---
arrived to floor. no acute distress noted. respirations easy. oriented to room, staff, call system. call light within reach. no voiced complaints
[2019-12-03 20:00] VITALS: BP 150/63
--- NOTE | 2019-12-03 20:49 | NUR ---
PATIENT IS AAOX3. ASSESSMENT IS COMPLETE WITH NO S/S OF DISTRESS NOTED AT THIS TIME. BED IS LOW, LOCKED, ALARMED, AND CALL LIGHT IS WITHIN REACH. WILL CONTINUE TO MONITOR SEE SHIFT ASSESSMENT.
[2019-12-04] VITALS: BP 158/77
--- NOTE | 2019-12-04 00:30 | NUR ---
PATIENT SLEEPING WITH NONLABORED RESPERS ON ROOM AIR. CALL LIGHT IS WIHTIN REACH.
--- NOTE | 2019-12-04 02:39 | NUR ---
CHART CHECK COMPETE.
--- NOTE | 2019-12-04 06:49 | NUR ---
PHYSICAL THERAPY PT EVAL COMPLETED TODAY: FULL EVAL TO FOLLOW; RECOMMEND PT WHILE HERE TO ADDRESS DECREASED STRENGTH AND FUNCTIONAL MOBILITY. PT EVAL IS MODERATE COMPLEXITY: [id number]. D/C RECOMMENDATIONS AT THIS TIME ARE SNF BASED ON THE FACT THAT HE DOES LIVE ALONE AND HAS HAD RECENT SURGERY. IF HE DOES WELL HERE WITH PT HE MAY BE ABLE TO GO HOEM WITH HOME HEALTH. THANK YOU FOR REFERRAL ARIELA MARQUEZ PT
[2019-12-04 08:00] VITALS: BP 150/66
--- NOTE | 2019-12-04 09:00 | NUR ---
Natural Resources Technician in to talk to patient. Patient states lives at home with alone. There are none steps in the home. 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 ZEYNEP AVILA
--- NOTE | 2019-12-04 09:00 | NUR ---
Concrete Curer in to talk to patient. Patient states lives at home with alone. There are no steps in the home. Physician: zach alex [facility]: [facility] Home health services: none Patient's level of ADLs: INDEPENDENT Patient has working utilities: all working DME: none Follow-up physician's appointment after d/c: will be made by hospitalist nurse director upon discharge Does patient want to access PORTAL?: no Discharge plan discussed with patient, he lives at home alone, he is independent in adls and ambulation, works, drives, he states he will return home when medically stable, discussed with him VNA and educated on their services, he was receptive to this, given choice of companies he chose [facility], case management will send referral to [facility] . ZEYNEP AVILA
[2019-12-04 09:19] LABS: ALKALINE PHOSPHATASE 90 U/L (45-117); LIPASE 196 U/L (73-393); SGOT/AST 44 IU/L (3-35); SGPT/ALT 80 U/L (12-78)
--- NOTE | 2019-12-04 11:07 | NUR ---
PHYSICAL THERAPY TREATMENT TIME: 16 MINUTES TOTAL. Patient presented to therapy in supine with head of bed slightly elevated and bed alarm activated. Patient gives informed consent for treatment. Patient was identified by name and on wristband. Patient reports abdominal pain from recent surgery. Patient has OLI drain. Patient performed supine to sitting at EOB transfer with MIN A X 1. Patient scooted to EOB with CGA X 1. Patient transferred sit to stand from EOB with MIN A X 1 WITH VERBAL CUES for pushing off the bed with hands. Patient ambulated with Walker and CGA X 1 for 60' x 2 with other therapist pushing the rolling chair behind patient while he ambulated. PATIENT REQUIRED ONLY ONE STANDING REST BREAK AFTER THE 1ST 60' DISTANCE. Patient verbal cues during gait for upright posture. Patient transferred into bedside chair with CGA X 1 with verbal cues for putting hands back on armrests of chair. Patient was left in bedside chair with call light within reach, chair alarm tested and attached to patient and LEs in low position. Patient was 1:1 with this NIPPLE MAKER for 16 minutes total. NII SMITH NIPPLE MAKER
[2019-12-04 11:37] VITALS: BP 117/54
--- NOTE | 2019-12-04 14:19 | NUR ---
case management notified [facility] that patient is being discharged to home today
--- NOTE | 2019-12-04 15:15 | NUR ---
Discharge instructions reviewed with patient. Patient receptive and verbalizes understanding. Follow-up care arranged. Written instructions given to patient. PATIENT AWAITING RIDE HOME FROM FAMILY, GETTING DRESSED AT THIS TIME. AMADA FERNANDEZ
--- NOTE | 2019-12-04 15:30 | NUR ---
PATIENT DISCHARGED TO HOME. ALL PERSONAL BELONGINGS SENT WITH PATIENT. IVS DISCONTINUED. DISCHARGE INSTRUCTIONS GIVEN AND REVIEWED WITH PATIENT. PATIENT INSTRUCTED TO FOLLOW UP WITH DR. BRISCOE, AND .
--- NOTE | 2019-12-05 07:31 | NUR ---
PHYSICAL THERAPY CO-SIGN I approve of the Physical Therapy notes written above. Tracey Woodward PT
== END 2019-12-04 15:30 | disposition home or self-care (01) | DRG 853 ==
LOC: ED 13:25 → 4E 16:01 → EDHOLD 16:01 → ICCU 16:01 → 4E 16:36 → ICCU 11-30 09:30 → 4E 12-02 17:42 → 5E 12-03 18:15
PROVIDERS: Emergency Medicine; Internal Medicine; Internal Medicine Critical Care Medicine; Internal Medicine Gastroenterology; Nurse Anesthetist, Certified Registered; Registered Nurse; Surgery; ADMIT Family Medicine
PROC: 0FT40ZZ Resection of Gallbladder, Open Approach (ICD-10-PCS; principal; 2019-11-30)
PROC: 0FJ44ZZ Inspection of Gallbladder, Percutaneous Endoscopic Approach (ICD-10-PCS; principal; 2019-11-30)
PROC: 0F798DZ Dilation of Common Bile Duct with Intraluminal Device, Via Natural or Artificial Opening Endoscopic (ICD-10-PCS; 2019-12-01)
PROC: BF101ZZ Fluoroscopy of Bile Ducts using Low Osmolar Contrast (ICD-10-PCS; 2019-12-01)
DX: A41.9 Sepsis, unspecified organism (principal); N17.0 Acute kidney failure with tubular necrosis; J18.9 Pneumonia, unspecified organism; J95.2 Acute pulmonary insufficiency following nonthoracic surgery; E44.0 Moderate protein-calorie malnutrition; K81.0 Acute cholecystitis; R65.20 Severe sepsis without septic shock; I10 Essential (primary) hypertension; N40.0 Benign prostatic hyperplasia without lower urinary tract symptoms; E78.2 Mixed hyperlipidemia; K83.8 Other specified diseases of biliary tract; E78.00 Pure hypercholesterolemia, unspecified; E66.9 Obesity, unspecified; Z88.8 Allergy status to other drugs, medicaments and biological substances; Z98.49 Cataract extraction status, unspecified eye; Z68.27 Body mass index [BMI] 27.0-27.9, adult; Z82.49 Family history of ischemic heart disease and other diseases of the circulatory system; Z79.82 Long term (current) use of aspirin; Z79.899 Other long term (current) drug therapy

== ENCOUNTER → 2020-09-25 | Outpatient (CLI) | payer BC, MEDICARE ==
[~2020-09-25] MED LIST changes: +CO Q10100 MG PO
== END | disposition home or self-care (01) ==
LOC: LAB 14:03
PROVIDERS: ATTEND Urology
DX: Z12.5 Encounter for screening for malignant neoplasm of prostate (principal)

== ENCOUNTER 2021-06-28 18:55 | Emergency (ER) | payer BC, MEDICARE ==
[~2021-06-28] VITALS: Ht 182.9 cm; Wt 90.7 kg
[2021-06-28] MEDS ORDERED: COLACE100 MG PO (19:42)
== END 2021-06-28 20:02 | disposition home or self-care (01) ==
LOC: ED 18:55
DX: K59.00 Constipation, unspecified (principal); Z88.8 Allergy status to other drugs, medicaments and biological substances; Z79.899 Other long term (current) drug therapy; Z79.82 Long term (current) use of aspirin

== ENCOUNTER → 2021-12-16 | Outpatient (CLI) | payer BC, MEDICARE ==
[~2021-12-16] MED LIST changes: +COLACE100 MG PO
== END | disposition home or self-care (01) ==
LOC: LAB 13:45
PROVIDERS: ATTEND Urology
DX: N40.1 Benign prostatic hyperplasia with lower urinary tract symptoms (principal)

== ENCOUNTER 2022-02-22 14:41 | Emergency (ER) | payer BC, MEDICARE ==
[2022-02-22] MEDS ORDERED: LOPRESSOR25 MG PO (14:55)
== END 2022-02-22 15:04 | disposition home or self-care (01) ==
LOC: ED 14:41
DX: I10 Essential (primary) hypertension (principal); Z76.0 Encounter for issue of repeat prescription

== ENCOUNTER → 2022-06-17 | Outpatient (CLI) | payer BC, MEDICARE ==
[~2022-06-17] MED LIST changes: +LOPRESSOR25 MG PO
== END | disposition home or self-care (01) ==
LOC: LAB 14:45
PROVIDERS: ATTEND Urology
DX: N40.1 Benign prostatic hyperplasia with lower urinary tract symptoms (principal)

== ENCOUNTER → 2022-09-08 | Outpatient (CLI) | payer BC, MEDICARE | END | disposition home or self-care (01) | LOC: CT 10:00 | PROVIDERS: ATTEND Urology | DX: K44.9 Diaphragmatic hernia without obstruction or gangrene (principal); K57.32 Diverticulitis of large intestine without perforation or abscess without bleeding; N40.0 Benign prostatic hyperplasia without lower urinary tract symptoms ==

== ENCOUNTER 2022-11-15 15:50 | Emergency (ER) | payer BC, MEDICARE ==
[~2022-11-15] VITALS: Ht 180.3 cm; Wt 88.5 kg
[2022-11-15 16:29] LABS: BASO % 0.2 % (0.0-1.0); EOS # 0.1 10*3/uL (0.0-0.4); EOS % 2.5 % (1.0-4.0); LYMPH # 0.9 10*3/uL (1.3-4.4); MEAN CELL VOLUME 94.3 fl (80.0-94.0); MEAN CORPUSCULAR HGB 31.6 pg (27.0-31.0); MEAN CORPUSCULAR HGB CONC 33.5 g/dl (33.0-37.0); MEAN PLATELET VOLUME 9.6 fl (9.6-12.3); MONO # 0.3 10*3/uL (0.1-1.0); MONO % 6.4 % (3.0-9.0); NEUT # 3.3 10*3/uL (2.3-7.9); NEUT % 70.7 % (47.0-73.0); PLATELET COUNT AUTOMATED 161 10*3/uL (130-400); RED BLOOD COUNT 4.56 10*6/uL (4.50-5.90); RED CELL DISTRI WIDTH 13.5 % (0-14.5); WHITE BLOOD COUNT 4.7 10*3/uL (4.8-10.8)
[2022-11-15 16:39] LABS: BILIRUBIN Negative (Negative); BLOOD Negative (Negative); CLARITY Clear (Clear); COLOR Yellow (Yellow); GLUCOSE Negative (Negative); KETONE Trace (Negative); LEUKO ESTERASE Negative (Negative); NITRITE Negative (Negative); PH 6.5 (4.5-8.0); SPECIFIC GRAVITY 1.015 (1.001-1.030)
[2022-11-15 16:49] LABS: ALKALINE PHOSPHATASE 62 U/L (46-116); BUN 15 mg/dl (9-23); CHLORIDE 101 mmol/L (98-107); POTASSIUM 3.8 mmol/L (3.4-5.1); SGPT/ALT 25 U/L (10-49); TOTAL PROTEIN 6.9 gm/dL (6.0-8.0)
[2022-11-15 17:25] LABS: BACTERIA TRACE; RBC 0-2 rbc/hpf (0-2)
== END 2022-11-15 18:01 | disposition home or self-care (01) ==
LOC: ED 15:50
PROVIDERS: Nurse Practitioner Family
DX: R19.7 Diarrhea, unspecified (principal); I10 Essential (primary) hypertension; Z88.8 Allergy status to other drugs, medicaments and biological substances; Z90.49 Acquired absence of other specified parts of digestive tract; Z98.890 Other specified postprocedural states

== ENCOUNTER → 2022-11-24 | Outpatient (CLI) | payer BC, MEDICARE | END | disposition home or self-care (01) | LOC: LAB 11-17 14:19 | PROVIDERS: ATTEND Internal Medicine | DX: R19.7 Diarrhea, unspecified (principal) ==

== ENCOUNTER → 2023-01-13 | Outpatient (CLI) | payer BC, MEDICARE | END | disposition home or self-care (01) | LOC: LAB 13:00 | PROVIDERS: ATTEND Urology | DX: N40.1 Benign prostatic hyperplasia with lower urinary tract symptoms (principal) ==

== ENCOUNTER → 2023-06-09 | Outpatient (CLI) | payer BC, MEDICARE | END | disposition home or self-care (01) | LOC: RAD 14:45 | PROVIDERS: ATTEND Physician Assistant | DX: J43.9 Emphysema, unspecified (principal); M40.294 Other kyphosis, thoracic region; M51.34 Other intervertebral disc degeneration, thoracic region ==

== ENCOUNTER → 2023-06-23 | Outpatient (CLI) | payer BC, MEDICARE | END | disposition home or self-care (01) | LOC: US 06-17 13:00 | PROVIDERS: ATTEND Physician Assistant | DX: R59.1 Generalized enlarged lymph nodes (principal) ==

== ENCOUNTER → 2023-07-09 | Outpatient (CLI) | payer BC, MEDICARE | END | disposition home or self-care (01) | LOC: LAB 14:36 | PROVIDERS: ATTEND Urology | DX: C61 Malignant neoplasm of prostate (principal) ==

== ENCOUNTER 2023-09-17 09:41 | Emergency (ER) | payer BC, MEDICARE ==
[~2023-09-17] VITALS: Ht 180.3 cm; Wt 88.5 kg
[2023-09-17] MEDS ORDERED: CIPROFLOXACIN H10 ML OPH (10:07)
== END 2023-09-17 10:20 | disposition home or self-care (01) ==
LOC: ED 09:41
DX: H10.9 Unspecified conjunctivitis (principal); I10 Essential (primary) hypertension; Z88.8 Allergy status to other drugs, medicaments and biological substances; Z90.49 Acquired absence of other specified parts of digestive tract; Z98.890 Other specified postprocedural states

== ENCOUNTER → 2023-10-15 | Outpatient (CLI) | payer BC, MEDICARE ==
[~2023-10-15] MED LIST changes: +CIPROFLOXACIN H10 ML OPH
== END | disposition home or self-care (01) ==
LOC: LAB 14:32
PROVIDERS: ATTEND Urology
DX: C61 Malignant neoplasm of prostate (principal)

== ENCOUNTER → 2023-10-20 | Outpatient (CLI) | payer BC, MEDICARE | END | disposition home or self-care (01) | LOC: CT 00:23 | PROVIDERS: ATTEND Specialist | DX: K13.29 Other disturbances of oral epithelium, including tongue (principal); K11.20 Sialoadenitis, unspecified ==

== ENCOUNTER → 2024-02-11 | Outpatient (CLI) | payer BC, MEDICARE | END | disposition home or self-care (01) | LOC: LAB 13:43 | PROVIDERS: ATTEND Urology | DX: R97.20 Elevated prostate specific antigen [PSA] (principal) ==

== ENCOUNTER 2024-07-23 14:34 | Emergency (ER) | payer BC, MEDICARE ==
[~2024-07-23] VITALS: Ht 182.8 cm; Wt 83.0 kg
[2024-07-23] MEDS ORDERED: Metoprolol Tartrate 25 MG TAB PO ONE ×3 (15:30)
== END 2024-07-23 15:49 | disposition home or self-care (01) ==
LOC: ED 14:34
DX: Z76.0 Encounter for issue of repeat prescription (principal); I10 Essential (primary) hypertension; Z88.8 Allergy status to other drugs, medicaments and biological substances; Z90.49 Acquired absence of other specified parts of digestive tract; Z98.890 Other specified postprocedural states

== ENCOUNTER → 2024-11-27 | Day surgery (SDC) | payer BC, MEDICARE ==
[~2024-11-27] VITALS: Ht 182.8 cm; Wt 82.6 kg
[~2024-11-27] MED LIST changes: +Lidocaine Hydrochloride 5 ML VIAL IV ONE; +PROPOFOL 200 MG/20 ML VIAL IV ONE; +SODIUM CHLORIDE 0.9% 500 ML IV ONE
[2024-11-27 07:19] VITALS: BP 161/86
[2024-11-27 08:13] VITALS: BP 135/62
[2024-11-27 08:28] VITALS: BP 136/64
[2024-11-27 08:41] VITALS: BP 161/62
== END | disposition home or self-care (01) ==
LOC: SDC 11-22 08:45
PROVIDERS: ATTEND Surgery
DX: R19.5 Other fecal abnormalities (principal); D12.2 Benign neoplasm of ascending colon; D12.5 Benign neoplasm of sigmoid colon; K64.8 Other hemorrhoids; J30.2 Other seasonal allergic rhinitis; K30 Functional dyspepsia; I10 Essential (primary) hypertension; E78.00 Pure hypercholesterolemia, unspecified; E44.0 Moderate protein-calorie malnutrition; F10.90 Alcohol use, unspecified, uncomplicated; Z90.49 Acquired absence of other specified parts of digestive tract; Z98.41 Cataract extraction status, right eye; Z98.42 Cataract extraction status, left eye; Z90.89 Acquired absence of other organs; Z98.890 Other specified postprocedural states; Z79.82 Long term (current) use of aspirin; Z79.899 Other long term (current) drug therapy

== ENCOUNTER → 2024-12-05 | Outpatient (CLI) | payer BC, MEDICARE ==
[~2024-12-05] MED LIST changes: -Lidocaine Hydrochloride 5 ML VIAL IV ONE; -PROPOFOL 200 MG/20 ML VIAL IV ONE; -SODIUM CHLORIDE 0.9% 500 ML IV ONE
== END | disposition home or self-care (01) ==
LOC: US 11-23 09:00
PROVIDERS: ATTEND Physician Assistant
DX: I10 Essential (primary) hypertension (principal); R19.5 Other fecal abnormalities; K30 Functional dyspepsia; Z90.49 Acquired absence of other specified parts of digestive tract

== ENCOUNTER 2024-12-16 10:21 | Emergency (ER) | payer BC, MEDICARE ==
[~2024-12-16] VITALS: Ht 182.8 cm; Wt 76.7 kg
[2024-12-16] MEDS ORDERED: Oxymetazoline Hydrochloride Nasal 15 ml bottle NAS ONE ×2 (11:15→12:00)
[2024-12-16] MEDS ORDERED: AVPAK AZITHROM250 M1 PO (12:06)
== END 2024-12-16 12:27 | disposition home or self-care (01) ==
LOC: ED 10:21
DX: R04.0 Epistaxis (principal); J32.9 Chronic sinusitis, unspecified; I10 Essential (primary) hypertension; E78.5 Hyperlipidemia, unspecified; Z88.8 Allergy status to other drugs, medicaments and biological substances; Z79.82 Long term (current) use of aspirin; Z79.899 Other long term (current) drug therapy

== ENCOUNTER → 2024-12-26 | Outpatient (CLI) | payer BC, MEDICARE ==
[~2024-12-26] MED LIST changes: +AVPAK AZITHROM250 M1 PO
== END | disposition home or self-care (01) ==
LOC: CT 12-16 09:00
PROVIDERS: ATTEND Physician Assistant
DX: I25.10 Atherosclerotic heart disease of native coronary artery without angina pectoris (principal); R63.4 Abnormal weight loss; K30 Functional dyspepsia; R06.00 Dyspnea, unspecified; J90 Pleural effusion, not elsewhere classified; N40.0 Benign prostatic hyperplasia without lower urinary tract symptoms

== ENCOUNTER 2025-01-16 19:41 | Emergency (ER) | payer BC, MEDICARE ==
[~2025-01-16] VITALS: Ht 180.3 cm; Wt 70.3 kg
[2025-01-16] MEDS ORDERED: MIRALAX POWDER17 G1 PO (21:41)
[2025-01-16] MEDS ORDERED: Polyethylene Glycol 3350 17 GM PACKET PO ONE (21:50)
== END 2025-01-16 21:55 | disposition home or self-care (01) ==
LOC: ED 19:41
DX: K56.41 Fecal impaction (principal); I10 Essential (primary) hypertension; E78.5 Hyperlipidemia, unspecified; E78.00 Pure hypercholesterolemia, unspecified; Z88.8 Allergy status to other drugs, medicaments and biological substances; Z90.49 Acquired absence of other specified parts of digestive tract; Z98.890 Other specified postprocedural states

== ENCOUNTER 2025-02-01 00:12 | Inpatient (IN) | payer BC, MEDICARE ==
[~2025-02-01] VITALS: Ht 180.3 cm; Wt 71.4 kg
[~2025-02-01 00:12] MED LIST changes: +MIRALAX POWDER17 G1 PO
[2025-02-01] MEDS ORDERED: VITAMIN D310 MC3 PO (00:23)
[2025-02-01 00:31] VITALS: BP 111/60
[2025-02-01 01:50] LABS: BASO % 0.1 % (0.0-1.0); EOS % 0.3 % (1.0-4.0); HEMATOCRIT 35.5 % (42.0-52.0); MEAN CELL VOLUME 91.5 fl (80.0-94.0); MEAN CORPUSCULAR HGB 29.9 pg (27.0-31.0); MEAN CORPUSCULAR HGB CONC 32.7 g/dl (33.0-37.0); MEAN PLATELET VOLUME 9.5 fl (9.6-12.3); MONO # 0.8 10*3/uL (0.1-1.0); MONO % 6.8 % (3.0-9.0); NEUT % 86.5 % (47.0-73.0); PLATELET COUNT AUTOMATED 246 10*3/uL (130-400); RED BLOOD COUNT 3.88 10*6/uL (4.50-5.90); RED CELL DISTRI WIDTH 14.5 % (0-14.5); WHITE BLOOD COUNT 11.5 10*3/uL (4.8-10.8)
[2025-02-01 02:17] LABS: BUN 13 mg/dl (9-23); CHLORIDE 97 mmol/L (98-107); POTASSIUM 3.7 mmol/L (3.4-5.1)
[2025-02-01] MEDS ORDERED: ACETAMINOPHEN 650 MG SUPP R PRN (04:50)
[2025-02-01] MEDS ORDERED: BISACODYL 10 MG SUPP R PRN (04:50)
[2025-02-01] MEDS ORDERED: BISACODYL 5 MG TAB PO PRN (04:50)
[2025-02-01] MEDS ORDERED: MORPHINE Sulfate 2 MG/ML SYR IV PRN (04:50)
[2025-02-01] MEDS ORDERED: Magnesium Hydroxide 30 ML UDC PO PRN (04:50)
[2025-02-01] MEDS ORDERED: Ondansetron Hydrochloride 4 MG/2 ML VIAL IV PRN (04:50)
[2025-02-01] MEDS ORDERED: ACETAMINOPHEN 325 MG TAB PO PRN (04:50)
[2025-02-01] MEDS ORDERED: ASPIRIN, CHEWABLE 81 MG TAB PO SCH (05:05)
[2025-02-01] MEDS ORDERED: SODIUM CHLORIDE 0.9% 1,000 ML IV ONE (05:05)
[2025-02-01] MEDS ORDERED: IOHEXOL 350 MG/ML 100 ML VIAL IV ONE (05:45)
[2025-02-01] MEDS ORDERED: SODIUM CHLORIDE 0.9% 100 ML BAG IV ONE (05:45)
[2025-02-01] MEDS ORDERED: Albuterol Sulf/Ipratropium 3 ML VIAL NEB SCH (05:50)
[2025-02-01] MEDS ORDERED: Pantoprazole Sodium 40 MG TAB PO SCH (06:00)
[2025-02-01 06:09] LABS: BASO % 0.2 % (0.0-1.0); EOS % 0.2 % (1.0-4.0); HEMATOCRIT 36.6 % (42.0-52.0); MEAN CELL VOLUME 92.4 fl (80.0-94.0); MEAN CORPUSCULAR HGB 30.3 pg (27.0-31.0); MEAN CORPUSCULAR HGB CONC 32.8 g/dl (33.0-37.0); MEAN PLATELET VOLUME 9.4 fl (9.6-12.3); MONO # 0.9 10*3/uL (0.1-1.0); MONO % 7.5 % (3.0-9.0); NEUT # 9.9 10*3/uL (2.3-7.9); NEUT % 82.1 % (47.0-73.0); PLATELET COUNT AUTOMATED 267 10*3/uL (130-400); RED BLOOD COUNT 3.96 10*6/uL (4.50-5.90); RED CELL DISTRI WIDTH 14.5 % (0-14.5); WHITE BLOOD COUNT 12.1 10*3/uL (4.8-10.8)
[2025-02-01 06:17] LABS: ACT PARTIAL THROMBO TIME 32.7 SECONDS (20.0-32.1)
[2025-02-01] MEDS ORDERED: cefTRIAXone Sodium 1 GM VIAL ONE (06:20)
[2025-02-01 06:25] LABS: BILIRUBIN Negative (Negative); BLOOD Negative (Negative); CLARITY Clear (Clear); COLOR Yellow (Yellow); GLUCOSE Negative (Negative); KETONE 3+ (Negative); LEUKO ESTERASE Negative (Negative); NITRITE Negative (Negative); PH 6.5 (4.5-8.0); SPECIFIC GRAVITY 1.015 (1.001-1.030)
[2025-02-01 06:39] LABS: ALKALINE PHOSPHATASE 95 U/L (46-116); BUN 11 mg/dl (9-23); CHLORIDE 97 mmol/L (98-107); FREE T4 1.29 ng/dl (0.89-1.76); POTASSIUM 3.9 mmol/L (3.4-5.1); SGPT/ALT 14 U/L (5-49); TOTAL PROTEIN 6.5 gm/dL (6.0-8.0)
[2025-02-01 06:40] LABS: WBC 0-2 wbc/hpf (0-5)
[2025-02-01] MEDS ORDERED: SODIUM CHLORIDE 0.9% 1,000 ML IV SCH (06:45)
[2025-02-01] MEDS ORDERED: Metoprolol Tartrate 25 MG TAB PO SCH ×3 (06:45→10:00)
[2025-02-01] MEDS ORDERED: ATORVASTATIN CALCIUM 20 MG TAB PO SCH ×3 (06:45→10:00)
[2025-02-01] MEDS ORDERED: cefTRIAXone Sodium 1 GM in SYRINGE INFUSION 10 ML IV SCH (07:00)
[2025-02-01] MEDS ORDERED: AZITHROMYCIN 250 ML IV SCH (07:00)
[2025-02-01 07:45] LABS: VITAMIN D, 25-HYDROXY 66.3 ng/mL (30-100)
[2025-02-01 07:52] VITALS: BP 150/85
[2025-02-01] MEDS ORDERED: Enoxaparin Sodium 80 MG/0.8 ML SYR SC SCH (08:00)
[2025-02-01 08:13] VITALS: BP 149/60
[2025-02-01] MEDS ORDERED: Enoxaparin Sodium 40 MG/0.4 ML SYR SC SCH ×2 (10:00)
[2025-02-01 12:00] VITALS: BP 137/65
[2025-02-01 16:00] VITALS: BP 128/81
[2025-02-01 20:00] VITALS: BP 128/60
[2025-02-01] MEDS ORDERED: GUAIFENESIN 600 MG TAB ER PO SCH (22:00)
[2025-02-01] MEDS ORDERED: Tamsulosin Hydrochloride 0.4 MG CAP PO SCH (22:00)
[2025-02-02] VITALS: BP 130/65
[2025-02-02 04:00] VITALS: BP 132/65
[2025-02-02 06:04] LABS: BASO % 0.2 % (0.0-1.0); EOS # 0.1 10*3/uL (0.0-0.4); EOS % 1.1 % (1.0-4.0); HEMATOCRIT 36.6 % (42.0-52.0); MEAN CELL VOLUME 92.7 fl (80.0-94.0); MEAN CORPUSCULAR HGB 30.9 pg (27.0-31.0); MEAN CORPUSCULAR HGB CONC 33.3 g/dl (33.0-37.0); MEAN PLATELET VOLUME 9.8 fl (9.6-12.3); MONO # 0.9 10*3/uL (0.1-1.0); MONO % 9.2 % (3.0-9.0); NEUT # 7.5 10*3/uL (2.3-7.9); NEUT % 75.1 % (47.0-73.0); PLATELET COUNT AUTOMATED 269 10*3/uL (130-400); RED BLOOD COUNT 3.95 10*6/uL (4.50-5.90); RED CELL DISTRI WIDTH 14.5 % (0-14.5)
[2025-02-02 06:48] LABS: BUN 11 mg/dl (9-23); CHLORIDE 98 mmol/L (98-107); POTASSIUM 3.7 mmol/L (3.4-5.1)
[2025-02-02] MEDS ORDERED: cefTRIAXone Sodium 1 GM in SYRINGE INFUSION 10 ML IV SCH (07:00)
[2025-02-02 08:00] VITALS: BP 159/80
[2025-02-02 12:00] VITALS: BP 141/71
[2025-02-02] MEDS ORDERED: Albuterol Sulf/Ipratropium 3 ML VIAL NEB PRN (14:40)
[2025-02-02] MEDS ORDERED: IOHEXOL 300 MG/ML 100 ML VIAL IV ONE (15:15)
[2025-02-02 16:00] VITALS: BP 177/79
[2025-02-02 20:00] VITALS: BP 145/78; BP 168/77
[2025-02-03] VITALS: BP 145/78; BP 162/79
[2025-02-03 04:00] VITALS: BP 158/73
[2025-02-03 06:41] LABS: BUN 10 mg/dl (9-23); CHLORIDE 98 mmol/L (98-107); POTASSIUM 3.6 mmol/L (3.4-5.1)
[2025-02-03] MEDS ORDERED: AZITHROMYCIN 250 ML IV SCH (07:30)
[2025-02-03 08:00] VITALS: BP 118/87
[2025-02-03 12:00] VITALS: BP 149/67
[2025-02-03 16:00] VITALS: BP 138/64
[2025-02-03 20:00] VITALS: BP 164/77
[2025-02-04] VITALS: BP 164/77
[2025-02-04 04:00] VITALS: BP 161/73
[2025-02-04 06:06] LABS: BUN 11 mg/dl (9-23); CHLORIDE 98 mmol/L (98-107); POTASSIUM 3.6 mmol/L (3.4-5.1)
[2025-02-04 08:00] VITALS: BP 156/77
[2025-02-04 09:30] VITALS: BP 140/66
[2025-02-04] MEDS ORDERED: PANTOPRAZOLE SO40 MG PO (11:24)
[2025-02-04] MEDS ORDERED: MUCUS RELIEF E600 MG PO (11:24)
[2025-02-04] MEDS ORDERED: ASPIRIN CHILDRE81 MG PO (11:24)
[2025-02-04] MEDS ORDERED: Loperamide Hydrochloride 2 MG CAP PO ONE (11:25)
[2025-02-04] MEDS ORDERED: LEVOFLOXACIN750 M2 PO (11:26)
[2025-02-04 12:00] VITALS: BP 169/81
== END 2025-02-04 15:28 | disposition home or self-care (01) | DRG 871 ==
LOC: ED 00:12 → EDHOLD 04:30 → 5E 04:30
PROVIDERS: Emergency Medicine; Internal Medicine; Student in an Organized Health Care Education/Training Program; ADMIT Internal Medicine; ATTEND Internal Medicine
DX: A41.9 Sepsis, unspecified organism (principal); E43 Unspecified severe protein-calorie malnutrition; J69.0 Pneumonitis due to inhalation of food and vomit; I21.4 Non-ST elevation (NSTEMI) myocardial infarction; E87.1 Hypo-osmolality and hyponatremia; C25.9 Malignant neoplasm of pancreas, unspecified; Z66 Do not resuscitate; D72.828 Other elevated white blood cell count; Z20.822 Contact with and (suspected) exposure to COVID-19; C61 Malignant neoplasm of prostate; I10 Essential (primary) hypertension; D64.9 Anemia, unspecified; R73.9 Hyperglycemia, unspecified; E78.5 Hyperlipidemia, unspecified; Z90.49 Acquired absence of other specified parts of digestive tract; Z82.49 Family history of ischemic heart disease and other diseases of the circulatory system; Z88.8 Allergy status to other drugs, medicaments and biological substances; Z79.899 Other long term (current) drug therapy; Z68.21 Body mass index [BMI] 21.0-21.9, adult